=== PATIENT | female | born 1935 | race Caucasian/White ===

== ENCOUNTER 2021-09-15 14:10 | Outpatient (CLI) | payer MEDICARE, SELFPAY ==
--- NOTE | 2021-09-15 14:25 | USCV_ITS ---
Arlet Crystal Age: 86 Gender: F : 1935 Exam Date: 09/15/2021 14:53 Ordering Phys: David Cunningham MD Technologist: Mario Medeiros Exam Location: [facility] [place]ication: CARDIOMYOPATHY BP: 110 / 70 HR: 64 Rhythm: Sinus Technical Quality: Adequate MEASUREMENTS (Male / Female) Normal Values 2D ECHO LV Diastolic Diameter PLAX 3.5 cm 4.2 - 5.9 / 3.9 - 5.3 cm LV Systolic Diameter PLAX 2.6 cm IVS Diastolic Thickness 1.1 cm 0.6 - 1.0 / 0.6 - 0.9 cm IVS Systolic Thickness 1.2 cm LVPW Diastolic Thickness 1.3 cm 0.6 - 1.0 / 0.6 - 0.9 cm LVPW Systolic Thickness 1.3 cm LVOT Diameter 2.0 cm LV Ejection Fraction 2D Teich 52.7 % LV Ejection Fraction MOD 2C 71.1 % LV Ejection Fraction 2C AL 74.1 % LA Diameter 3.5 cm LA Width 6.5 cm LA Height 4.5 cm RA Width 2.6 cm RA Height 5.8 cm Aorta at Sinotubular Diameter 2.7 cm M-MODE Aortic Annulus Diameter 3.0 cm LA Ao Ratio MM 1.0 DOPPLER AV Peak Velocity 121.0 cm/s LVOT Peak Velocity 86.0 cm/s AV Area Cont Eq vti 2.0 cm squared AV Area Cont Eq pk 2.3 cm squared MV Area PHT 2.1 cm squared Mitral E to A Ratio 0.7 MV E' Velocity 56.0 cm/s Mitral E to MV E' Ratio 20.8 Mitral E to LV E' Lateral Ratio 17.1 Mitral E to LV E' Septal Ratio 27.2 TR Peak Velocity 171.3 cm/s TR Peak Gradient 11.7 mmHg Right Atrial Pressure 3.0 mmHg Pulmonary Artery Systolic Pressu 14.7 mmHg FINDINGS Left Ventricle Normal left ventricular size, systolic function and mildly increased wall thickness, with no regional wall motion abnormalities. Left ventricular ejection fraction is estimated at 60-65 %. Abnormal diastolic function. Abnormal septal motion. Right Ventricle Normal right ventricular size and systolic function. Right ventricular systolic pressure 14.7 mmHg. Right Atrium Normal right atrial size. Left Atrium Severely increased left atrial size. Mitral Valve Severe mitral annular calcification. Status post mitral valve repair. Mitral valve mean gradient is 5 mmHg. Trace mitral valve regurgitation. Aortic Valve Structurally normal trileaflet aortic valve. No aortic valve stenosis. No aortic valve regurgitation. Tricuspid Valve Structurally normal tricuspid valve. No tricuspid valve stenosis. Mild tricuspid valve regurgitation. Pulmonic Valve Structurally normal pulmonic valve. No pulmonary valve stenosis. Trace pulmonary valve regurgitation. Pericardium No pericardial effusion. Prominent epicardial fat. Aorta Normal size aortic root and proximal ascending aorta. CONCLUSIONS 1. Normal left ventricular size, systolic function and mildly increased wall thickness, with no regional wall motion abnormalities. Left ventricular ejection fraction is estimated at 60-65 %. Abnormal diastolic function. 2. Normal right ventricular size and systolic function. 3. Severe mitral annular calcification. Status post mitral valve repair. Mitral valve mean gradient is 5 mmHg. Trace mitral valve regurgitation. 4. Mild tricuspid valve regurgitation. 5. No prior similar studies to compare. Syeda Castro MD (Electronically Signed) Final Date: 15 September 2021 21:36 S
== END 2021-09-15 14:11 | disposition home or self-care (01) ==
LOC: RAD 14:16
PROVIDERS: PCP Family Medicine; Visit Provider Internal Medicine Cardiovascular Disease
DX: I42.9 Cardiomyopathy, unspecified (principal); I08.1 Rheumatic disorders of both mitral and tricuspid valves
CPT/HCPCS: 93306

== ENCOUNTER → 2023-02-10 13:55 | Outpatient (BNVA) | payer MEDICARE, SELFPAY | PROVIDERS: PCP Family Medicine; Visit Provider Dermatology | DX: L57.0 Actinic keratosis (principal); L82.0 Inflamed seborrheic keratosis; L82.1 Other seborrheic keratosis; L81.4 Other melanin hyperpigmentation; D22.5 Melanocytic nevi of trunk; L57.8 Other skin changes due to chronic exposure to nonionizing radiation | CPT/HCPCS: 17000; 17110; 99213 ==